=== PATIENT | female | born 1945 | race Two or more races ===

== ENCOUNTER 2023-12-12 15:05 | Emergency (ER) | payer OTHER ==
[~2023-12-12] VITALS: Ht 162.6 cm; Wt 72.1 kg
[2023-12-12] MEDS ORDERED: COZAAR100 MG PO (16:26)
[2023-12-12] MEDS ORDERED: NORVASC5 MG PO (16:28)
[2023-12-12] MEDS ORDERED: ATORVASTATIN CA40 MG PO (16:28)
[2023-12-12] MEDS ORDERED: HYDROCHLOROTHIA25 MG PO (16:29)
[2023-12-12] MEDS ORDERED: FAMOTIDINE/PF 20 MG/2 ML VIAL IV PUSH ONE (17:00)
[2023-12-12] MEDS ORDERED: METHYLPREDNISOLONE SOD SUCC 125 MG VIAL IV ONE (17:00)
[2023-12-12] MEDS ORDERED: DIPHENHYDRAMINE HCL 50 MG/ML VIAL 1ML IM ONE (17:00)
[2023-12-12 17:31] LABS: HEMOGLOBIN 12.7 g/dL (12.0-15.00); MEAN CELL VOLUME 87.7 fL (80.00-100.00); MEAN CORPUSCULAR HEMOGLOBIN 29.2 pg (27.00-32.0); MEAN CORPUSCULAR HGB CONC 33.3 g/dl (32.0-36.0); PLATELET COUNT 337 K/uL (150-450); RED BLOOD COUNT 4.33 M/uL (4.00-6.00); RED CELL DISTRIBUTION WIDTH 14.2 % (11.5-14.5)
[2023-12-12 18:17] LABS: ALBUMIN 3.5 gm/dL (3.4-5.0); BILIRUBIN TOTAL 0.39 mg/dL (0.3-1.2); CALCIUM 9.7 mg/dL (8.5-10.1); CREATININE SERUM 1.08 mg/dL (0.55-1.02); GFR 49.19; GLOBULINA 4.6 G/DL (2.4-3.5); POTASSIUM 3.19 mEq/L (3.5-5.1); TOTAL PROTEIN 8.1 gm/dL (6.4-8.2)
== END 2023-12-12 20:05 | disposition home or self-care (01) ==
LOC: ER 15:06
PROVIDERS: General Practice
DX: D72.829 Elevated white blood cell count, unspecified (principal); L29.9 Pruritus, unspecified; I10 Essential (primary) hypertension
CPT/HCPCS: 36415; 96365; 96372; 99282; J1200; J3490 ×2